=== PATIENT | male | born 1995 | race Hispanic/Latino ===

== ENCOUNTER 2021-05-06 14:18 | Emergency (ER) | payer OTHER ==
[~2021-05-06] VITALS: Ht 167.6 cm; Wt 97.3 kg
[2021-05-06] MEDS ORDERED: PRAZ2CAP PO (14:26)
[2021-05-06] MEDS ORDERED: MELA5CAP2 PO (14:26)
[2021-05-06] MEDS ORDERED: LEXA1TAB PO (14:26)
[2021-05-06] MEDS ORDERED: methocarbamoL 750 MG TAB PO ONE (15:40)
[2021-05-06] MEDS ORDERED: KETOROLAC 60MG 2ML VIAL IM ONE (15:40)
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
[2021-05-06] MEDS ORDERED: NAPR-837 PO (16:23)
[2021-05-06] MEDS ORDERED: METH-1164 PO (16:23)
[2021-05-06 16:28] VITALS: BP 127/75
== END 2021-05-06 16:40 | disposition home or self-care (01) ==
LOC: M ED 14:18
DX: S13.4XXA Sprain of ligaments of cervical spine, initial encounter (principal); S16.1XXA Strain of muscle, fascia and tendon at neck level, initial encounter; V43.52XA Car driver injured in collision with other type car in traffic accident, initial encounter; Y92.9 Unspecified place or not applicable; Y93.9 Activity, unspecified; Y99.9 Unspecified external cause status; F17.200 Nicotine dependence, unspecified, uncomplicated
CPT/HCPCS: 70450; 72125; 96372; 99283; J1885

== ENCOUNTER → 2021-11-10 | Outpatient (REF) ==
[~2021-11-10] MED LIST: LEXA1TAB PO; MELA5CAP2 PO; METH-1164 PO; NAPR-837 PO; PRAZ2CAP PO
== END ==
LOC: M LABSMTC 11:32
PROVIDERS: ATTEND Pediatrics
DX: Z11.52 Encounter for screening for COVID-19 (principal)